=== PATIENT | male | born 1970 | race Hispanic/Latino ===

== ENCOUNTER 2019-08-10 01:54 | Emergency (ER) | payer BC ==
--- NOTE | 2019-08-10 02:45 | Emergency Department Report ---
HPI - General Chief Complaint: Dyspnea/Respdistress Time Seen by Provider: 08/10/19 02:13 - HPI HPI: 49-year-old male presents to the emergency department via EMS from home with complaint of some shortness of breath and dizziness this evening. The patient is positive for Covid 19. He began having some fever, chest discomfort, shortness of breath, coughing late last week and got tested and found that he was positive on Tuesday, 5 days ago. This evening the patient woke up with the dizziness which is what scared him and caused him to call for EMS. However at the time of my examination the patient says he is feeling "much better." Curr ently he does not have any fever. He denies any headache, vision change, chest pain. He is a former smoker. ED Past Medical Hx - Past Medical History Previous Medical History?: No - Surgical History Past Surgical History?: Yes Additional Surgical History: Left eye. left knee. hernia - Social History Smoking Status: Former Smoker Substance Use Type: None - Medications Home Medications: Home Medications Medication Instructions Recorded Confirmed Last Taken Type Albuterol INH(or & Nicu Only) 2 puff IH QID PRN #1 inh 08/10/19 Unknown Rx [ProAir HFA Inhaler] Azithromycin [Zithromax Z-MADHU] 250 mg PO DAILY #6 tab 08/10/19 Unknown Rx ED Review of Systems ROS: Stated complaint: POSITIVE COVID Other details as noted in HPI Comment: All other systems reviewed and negative Constitutional: weakness. denies: chills, fever Eyes: denies: eye pain, vision change ENT: denies: ear pain, throat pain Respiratory: cough, shortness of breath Cardiovascular: denies: chest pain, palpitations Gastrointestinal: denies: abdominal pain, vomiting Genitourinary: denies: dysuria, discharge Musculoskeletal: denies: back pain, arthralgia Skin: denies: rash, lesions Neurological: other (Dizziness). denies: headache Physical Exam - Physical Exam Vital Signs: Vital Signs 08/10/19 02:06 Temperature 97.8 F Pulse Rate 83 Respiratory 17 Rate Blood Pressure 138/99 [Left] O2 Sat by Pulse 98 Oximetry Physical Exam: GENERAL: The patient is well-developed well-nourished. HENT: Normocephalic. Atraumatic. Patient has moist mucous membranes. EYES: Extraocular motions are intact. NECK: Supple. Trachea is midline. CHEST/LUNGS: Clear to auscultation. There is no respiratory distress noted. HEART/CARDIOVASCULAR: Regular. There is no tachycardia. ABDOMEN: Abdomen is soft, nontender. Patient has normal bowel sounds. SKIN: Skin is warm and dry. NEURO: The patient is awake, alert, and oriented. The patient is cooperative. The patient has no focal neurologic deficits. Normal speech. Cranial nerves II through XII grossly intact. MUSCULOSKELETAL: There is no tenderness or deformity. There is no limitation range of motion. There is no evidence of acute injury. ED Course Vital Signs 08/10/19 02:06 Temperature 97.8 F Pulse Rate 83 Respiratory 17 Rate Blood Pressure 138/99 [Left] O2 Sat by Pulse 98 Oximetry ED Medical Decision Making - Lab Data Result diagrams: 08/10/19 02:43 08/10/19 02:43 - EKG Data -: EKG Interpreted by Nd EKG shows normal: sinus rhythm, axis, intervals, QRS complexes, ST-T waves Rate: normal - EKG Data When compared to previous EKG there are: previous EKG unavailable Interpretation: normal EKG - Radiology Data Radiology results: report reviewed CHEST 1 VIEW INDICATION / CLINICAL INFORMATION: SOB. Patient stated he tested positive for Covid 19 COMPARISON: None available. FINDINGS: SUPPORT DEVICES: None. HEART / MEDIASTINUM: No significant abnormality. LUNGS / PLEURA: Mild pulmonary opacities are present in both lung bases, suspicious for bibasilar pneumonia. No pneumothorax. No pleural effusion. ADDITIONAL FINDINGS: Numerous old healed left rib fractures are present. IMPRESSION: 1. Bibasilar pulmonary opacities, suspicious for bibasilar pneumonia. - Medical Decision Making This patient, who is already known to be Covid 19+, presents after he had some dizziness this evening. Upon my evaluation, the patient is resting comfortably in no respiratory or acute distress. His vital signs are stable including being afebrile and there is no hypoxia. An EKG was done that does not show any ST elevation DC or dysrhythmia. The patient's labs have been unremarkable including CBC, metabolic panel, troponin, TSH level. His chest x-ray shows some mild faint bibasilar opacities that could show some pneumonia. This could be consistent with his COVID-19. The patient was reevaluated multiple times over multiple hours and says he is feeling well. The previous dizziness has completely resolved. The patient had a 2-minute exercise test in which he ambulated around the emergency department and there was no hypoxia or increased work of breathing. For all these reasons patient appears safe for discharge back to his home to continue quarantine, and treatment at home. He will return to the emergency department with any worsening of his symptoms or any acute distress. Critical Care Time: No Critical care attestation.: If time is entered above; I have spent that time in minutes in the direct care of this critically ill patient, excluding procedure time. ED Disposition Clinical Impression: COVID-19 virus infection Pneumonia Qualifiers: Pneumonia type: due to unspecified organism Laterality: bilateral Lung location: unspecified part of lung Qualified Code(s): J18.9 - Pneumonia, unspecified organism Disposition: TO HOME OR SELFCARE Is pt being admited?: No Condition: Stable Instructions: COVID-19, Viral Pneumonia (ED) Additional Instructions: Please make sure to go directly home to quarantine and or isolate yourself so that you do not pass along with the COVID-19 infection. However, return to the emergency department or call 911 with any worsening of your symptoms including any high intractable fever, significant shortness of breath, low oxygen saturation, or with any acute distress. Prescriptions: Albuterol INH(or & Nicu Only) [ProAir HFA Inhaler] 2 puff IH QID PRN #1 inh PRN Reason: Shortness Of Breath Azithromycin [Zithromax Z-MADHU] 250 mg PO DAILY #6 tab Time of Disposition: 04:50
--- NOTE | 2019-08-10 03:06 | XRay Report ---
CHEST 1 VIEW INDICATION / CLINICAL INFORMATION: SOB. Patient stated he tested positive for Covid 19 COMPARISON: None available. FINDINGS: SUPPORT DEVICES: None. HEART / MEDIASTINUM: No significant abnormality. LUNGS / PLEURA: Mild pulmonary opacities are present in both lung bases, suspicious for bibasilar pne umonia. No pneumothorax. No pleural effusion. ADDITIONAL FINDINGS: Numerous old healed left rib fractures are present. IMPRESSION: 1. Bibasilar pulmonary opacities, suspicious for bibasilar pneumonia. Signer Name: Maria De Jesus Mendez MD Signed: 08/10/2019 3:01 AM Workstation Name: [id number]
[2019-08-10 03:22] LABS: Basophils % (Auto) 0.4 % (0.0-1.8); Eosinophils % (Auto) 0.5 % (0.0-4.3); Hematocrit 49.2 % (35.5-45.6); Hemoglobin 16.8 gm/dl (11.8-15.2); Lymphocytes % (Auto) 12.4 % (13.4-35.0); Mean Corpuscular HGB Conc 34 % (32-34); Mean Corpuscular Volume 92 fl (84-94); Monocytes # (Auto) 0.5 K/mm3 (0.0-0.8); Monocytes % (Auto) 6.8 % (0.0-7.3); Platelet Count 211 K/mm3 (140-440); Red Blood Count 5.34 M/mm3 (3.65-5.03); Red Cell Distribution Width 12.9 % (13.2-15.2)
[2019-08-10 03:27] LABS: Alanine Aminotransferase 44 units/L (7-56); Albumin 4.1 g/dL (3.9-5); BUN/Creatinine Ratio 10; Blood Urea Nitrogen 9 mg/dL (9-20); Calcium 8.8 mg/dL (8.4-10.2); Hemolysis Index 9
[2019-08-10 03:32] LABS: INR 0.92 (0.87-1.13)
[2019-08-10 03:44] LABS: Partial Thromboplastin Time 31.3 Sec. (24.2-36.6)
[2019-08-10 05:08] VITALS: BP 123/83
== END 2019-08-10 05:09 | disposition home or self-care (01) ==
LOC: ED 01:54
DX: U07.1 COVID-19 (principal); J18.9 Pneumonia, unspecified organism; Z79.899 Other long term (current) drug therapy; Z98.890 Other specified postprocedural states; Z87.891 Personal history of nicotine dependence
CPT/HCPCS: 36415; 71045; 80053; 83880; 84443; 84484; 85025; 85610; 85730; 93005